=== PATIENT | male | born 1980 ===

== ENCOUNTER → 2021-06-01 15:19 | Outpatient (ROUT) | payer OTHER, SELFPAY ==
[2021-06-01 17:34] LABS: COVID19 -Nasal RAPID Negative (Negative)
== END ==
PROVIDERS: Visit Provider Family Medicine
DX: Z20.822 Contact with and (suspected) exposure to COVID-19 (principal)
CPT/HCPCS: 87635

== ENCOUNTER → 2023-04-13 13:05 | Outpatient (ROUT) | payer OTHER, SELFPAY ==
[2023-04-13 14:08] LABS: Testosterone 297 ng/dL (132-813)
[2023-04-13 15:10] LABS: Vitamin D 25 Hydroxy (D3) 40.2 ng/mL (30.0-100.0)
== END ==
PROVIDERS: Visit Provider Family Medicine
DX: E34.9 Endocrine disorder, unspecified (principal); Z79.890 Hormone replacement therapy; E55.9 Vitamin D deficiency, unspecified
CPT/HCPCS: 82306; 84403